=== PATIENT | female | born 1955 | race Caucasian/White ===

== ENCOUNTER 2025-05-08 19:45 | Emergency (ER) | payer MEDICAID ==
[~2025-05-08] VITALS: Ht 162.6 cm; Wt 52.3 kg
[2025-05-08 20:17] LABS: MEAN PLATELET VOLUME 7.2 FL (7.4-10.4); RED CELL DISTRIBUTION WIDTH 13.2 % (11.5-14.5)
--- NOTE | 2025-05-08 20:21 | ELECTROCARDIOGRAPH REPORT ---
[facility] Test Date: 2025-05-08 Test Time: 20:20:01 Pat Name: CE FERRIS Department: EMERGENCY ROOM Room: Gender: F [employer] C[employer] Developer: GRAYSON : 1955 Requested By: SONDRA RYAN Order Number: [id number] Reading MD: Measurements Intervals [place] Rate: 72 P: 81 [place]: 144 QRS: 69 QRSD: 68 T: 85 QT: 406 QTc: 445 Interpretive Statements Sinus rhythm Probable left atrial enlargement Anteroseptal infarct, age indeterminate Please click the below link to view image of tracing.
[2025-05-08 20:37] LABS: CREATININE 0.89 MG/DL (0.40-0.90); ETHANOL 250 MG/DL (<10); TOTAL CARBON DIOXIDE 26.5 MMOL/L (24-32); eCRCL 48 ML/MIN; eGFR 63 ML/MIN
[2025-05-08 20:50] LABS: CREATININE 1.09 MG/DL (0.40-0.90); TOTAL CARBON DIOXIDE 25.6 MMOL/L (24-32); eCRCL 39 ML/MIN; eGFR 49 ML/MIN
--- NOTE | 2025-05-08 21:29 | Physician Documentation ---
History of Present Illness ~ Chief Complaint: 5150 Stated Complaint: 5150 Time Seen by MD: 21:27 Mode of Arrival: Dropped Off HPI Patient is sent from assisted living facility for altered mental status. Endorses alcohol use prior to visit. She keeps on saying that she wants to . Patient also endorses taking unknown amount of pills. Poison control contacted Medication Reconciliation Allergies: Coded Allergies: No Allergy Information Available (Unverified , 05/08/25) Review of Systems ROS All review of systems negative except as per HPI Physical Exam Vital Signs: Temperature: 98.1, Source: Oral, Heart Rate: 71, Respiratory Rate: 12, BP: 113/59, Pulse Oximetry: 95, Weight: 52.270 Oxygen Flow Rate: 0 Physical Exam General: Patient is awake, alert, crying loudly Head: Normocephalic and atraumatic. Eyes: Conjunctival normal. EOMI. PERRL. ENT: Mucous membranes moist. Neck: Supple, trachea is midline. Chest: Clear to auscultation bilaterally without rales, rhonchi, or wheezes. There is no accessory muscle use or retractions. Cardiac: RRR without murmurs, gallops, or rubs. Psych: Uncooperative, combative, appears intoxicated, suicidal Progress Results/Orders Results/Orders Orders - VALERIO BAXTER MD Urinalysis (05/08/25 19:50) Drug Screen, Urine (05/08/25 19:50) Med Rec (05/08/25 19:50) Close Observation Level (05/08/25 19:50) Covid19 Binax Poc Result Entry (05/08/25 19:50) Regular Diet (05/09/25 Breakfast) * Implement/Maintain Seizure P (05/08/25 20:14) Monitor (05/08/25 20:14) Saline Lock (05/08/25 20:14) Oxygen (05/08/25 20:14) Completed Orders - VALERIO BAXTER MD Cbc/Diff (05/08/25 19:50) Ethanol (05/08/25 19:50) TSH (05/08/25 19:50) BMP (05/08/25 19:50) Acetaminophen (05/08/25 20:14) Stat Ekg (05/08/25 ) CMP (05/08/25 20:14) MG (05/08/25 20:14) Calcium (05/08/25 20:14) Haloperidol Lact. (Haldol) (05/08/25 21:30) Lorazepam Inj (Ativan Inj) (05/08/25 21:30) Stat Ekg (05/09/25 00:10) Salicylate (05/08/25 20:26) Medications Received in ER Medications (Trade) Dose Ordered Sig/Tess Route PRN Reason Start Time Stop Time Status Last Admin Dose Admin (Haldol) 10 mg ONCE ONCE IM 05/08/25 21:30 05/08/25 21:31 DC 05/08/25 21:38 10 MG (Ativan inj) 0.5 mg ONCE ONCE IM 05/08/25 21:30 05/08/25 21:31 DC 05/08/25 21:36 0.5 MG Vital Signs 05/08/25 05/08/25 05/08/25 05/08/25 19:48 21:09 21:10 22:30 Temp 98.1 Pulse 71 71 73 Resp 14 12 12 17 B/P (MAP) 106/66 113/59 (77) Pulse Ox 94 95 93 O2 Flow Rate 0 05/09/25 00:05 Pulse 72 Resp 12 B/P (MAP) 96/52 (67) Pulse Ox 94 Laboratory Tests Test 05/08/25 19:57 05/08/25 19:59 05/08/25 20:26 SARS-CoV-2 Antigen (Rapid) Negative White Blood Count 6.5 Red Blood Count 4.20 Hemoglobin 14.0 Hematocrit 39.6 Mean Corpuscular Volume 94.5 Mean Corpuscular Hemoglobin 33.3 H Mean Corpuscular Hemoglobin Concent 35.3 Red Cell Distribution Width 13.2 Platelet Count 332 Mean Platelet Volume 7.2 L Neutrophils (%) (Auto) 57.0 Lymphocytes (%) (Auto) 39.0 Monocytes (%) (Auto) 3.2 Eosinophils (%) (Auto) 0.1 Basophils (%) (Auto) 0.7 Neutrophils # (Auto) 3.7 Lymphocytes # (Auto) 2.5 Monocytes # (Auto) 0.2 Eosinophils # (Auto) 0.0 Basophils # (Auto) 0.0 CBC Comment Sodium Level 142 145 Potassium Level 3.5 3.5 Chloride Level 105 107 Carbon Dioxide Level 26.5 25.6 Anion Gap 11 12 Blood Urea Nitrogen 14 14 Creatinine 0.89 1.09 H Estimated GFR/1.73 m2 63 49 BUN/Creatinine Ratio 15.7 12.8 Glucose Level 88 91 Calcium Level 8.8 8.8 Albumin 3.9 3.9 Thyroid Stimulating Hormone (TSH) 0.84 Chemistry Comments Ethyl Alcohol Level 250 H Magnesium Level 2.2 Total Bilirubin 0.2 Aspartate Amino Transf (AST/SGOT) 24 Alanine Aminotransferase (ALT/SGPT) 22 Alkaline Phosphatase 58 Total Protein 6.8 Globulin 2.9 Albumin/Globulin Ratio 1.3 Salicylates Level 2.4 L Acetaminophen Level < 2.0 L EKG/XRAY/CT/US/VASC/MRI EKG : Additional Comment EKG interpreted by myself shows time of 0014, rate 75, sinus rhythm, normal axis, no ST changes Medical Decision Making Findings Patient presented to the emergency room for evaluation of suicidal ideation as per HPI. Labs reviewed and there was no evidence of major pathologic derangements. Poison control contacted and repeat labs are reassuring. Patient is medically cleared for mental health evaluation. Departure Disposition: 30 STILL A PATIENT Impression: Primary Impression: Suicidal ideation Condition: Guarded Referrals: NO PRIMARY CARE PROVIDER (PCP) Signature Scribe Signature: No scribe Attestation: The note accurately reflects work and decisions made by me.Valerio Baxter MD 05/09/25 02:12 VALERIO BAXTER MD May 08, 2025 21:29
[2025-05-08] MEDS: haloperidol lactate 5mg/ml inj IM ONE (21:38)
--- NOTE | 2025-05-09 00:15 | ELECTROCARDIOGRAPH REPORT ---
[facility] Test Date: 2025-05-09 Test Time: 00:14:09 Pat Name: CE FERRIS Department: [facility]- Patient ID: [facility]-[id number] Room: Gender: F Doctor Osteopathic: RGAYSON : 1955 Requested By: SONDRA RYAN Order Number: [id number] Reading MD: Measurements Intervals [place] Rate: 75 P: 70 [place]: 133 QRS: 11 QRSD: 92 T: 60 QT: 421 QTc: 471 Interpretive Statements Sinus rhythm Low voltage, extremity leads Please click the below link to view image of tracing.
[2025-05-09 06:19] LABS: LEUKOCYTE ESTERASE ,URINE NEGATIVE (Neg); NITRITES, URINE NEGATIVE (Neg); OCCULT BLOOD,URINE TRACE-INTACT (Neg)
[2025-05-09 06:25] LABS: UA COLLECTION TYPE CLN CATCH MIDSTREAM
[2025-05-09 06:27] LABS: MUCUS STRANDS NONE SEEN /LPF (Neg); SQUAMOUS EPITHELIAL CELL,UR MODERATE /LPF (FEW)
[2025-05-09 06:38] LABS: URINE AMPHETAMINE SCREEN POSITIVE (Neg); URINE BARBITUATE SCREEN NEGATIVE (Neg); URINE BENZODIAZEPINES SCREEN NEGATIVE (Neg); URINE COCAINE SCREEN NEGATIVE (Neg); URINE METHADONE SCREEN NEGATIVE (Neg); URINE OPIATE SCREEN POSITIVE (Neg); URINE PHENCYCLIDINE SCREEN NEGATIVE (Neg)
[2025-05-09 12:33] VITALS: RESP 14
[2025-05-09] MEDS: NICOTINE POLACRILEX 2 MG LOZENGE BC PRN (15:43)
[2025-05-09 18:06] VITALS: BP 178/90; PULSE 85; TEMP 97.3; O2SAT 93
== END 2025-05-09 18:30 | disposition home or self-care (01) ==
LOC: ER 19:46
DX: R45.851 Suicidal ideations (principal); F10.90 Alcohol use, unspecified, uncomplicated; Z20.822 Contact with and (suspected) exposure to COVID-19; Y90.8 Blood alcohol level of 240 mg/100 ml or more
CPT/HCPCS: 36415; 80048; 80053; 80305; 80320; 80329; 81001; 83735; 84443; 85025; 87811; 93005; 96372; 99285; J1630; J2060

== ENCOUNTER 2025-08-10 19:03 | Emergency (ER) | payer MEDICARE, MEDICAID ==
[~2025-08-10] VITALS: Ht 162.6 cm; Wt 59.1 kg
[~2025-08-10 19:03] MED LIST: ARIP400S3 IM; ATOR20TA66 PO; BENZ0.5T3 PO; DEXT30CA6 PO; TRAZ150T78 PO; VENL25TA48 PO
[2025-08-10 19:15] VITALS: BP 114/57; PULSE 71; RESP 16; O2SAT 96
--- NOTE | 2025-08-10 19:22 | Physician Documentation ---
History of Present Illness ~ Chief Complaint: ETOH Stated Complaint: L FOOT PAIN Time Seen by MD: 19:11 Mode of Arrival: EMS, Stretcher HPI Patient presents to the emergency room for evaluation of her right foot. She reports that there has been pain in her foot for the past month. She can not recall anything that may have caused her foot pain. She admits to drinking today and has a history of alcoholism and a neighbor that has concerned and called for a welfare check. During the welfare check patient reported her foot pain and therefore was brought in to be evaluated. Tetanus within 5 years?: No (pt unable to answer) Medication Reconciliation Allergies: Coded Allergies: doxycycline (Verified Allergy, Severe, throat swelling, 08/10/25) Scheduled Aripiprazole (Abilify Maintena), 1 EA IM Q28D, (Reported) Atorvastatin Calcium (Atorvastatin Calcium), 1 TAB PO DAILY, (Reported) Benztropine Mesylate (Benztropine Mesylate), 1 TAB PO DAILY, (Reported) Dextroamphetamine/Amphetamine (Dextroamp-Amphet ER 30 mg Cap), 1 CAP PO QAM, (Reported) Trazodone Hcl (Trazodone Hcl), 1 TAB PO HS, (Reported) Venlafaxine Hcl* (Effexor*), 1 TAB PO BID, (Reported) Review of Systems ROS All review of systems negative except as per HPI Physical Exam Vital Signs: Temperature: 98.1, Source: Oral, Heart Rate: 71, Respiratory Rate: 16, BP: 114/57, Pulse Oximetry: 96, Weight: 59.090 Oxygen Flow Rate: 0 Physical Exam General: Patient is awake, alert, oriented x4. Appears intoxicated Head: Normocephalic and atraumatic. Eyes: Conjunctival normal. EOMI. PERRL. ENT: Mucous membranes moist. Neck: Supple, trachea is midline. Chest: Clear to auscultation bilaterally without rales, rhonchi, or wheezes. There is no accessory muscle use or retractions. Cardiac: RRR without murmurs, gallops, or rubs. Abd: Soft, nondistended, nontender, with normoactive bowel sounds. No guarding, rebound, or rigidity. Extremities: No appreciable abnormality of foot aside from tenderness to palpation. No erythema, strong pulses no bruising Progress Results/Orders Results/Orders Orders - VALERIO BAXTER MD Foot, Complete (3vw Min) (08/10/25 19:13) Completed Orders - VALERIO BAXTER MD Foot, Complete (3vw Min) (08/10/25 19:13) Vital Signs 08/10/25 08/10/25 08/10/25 19:06 19:11 19:15 Temp 98.1 Pulse 74 71 Resp 16 16 16 B/P (MAP) 166/102 114/57 (76) Pulse Ox 96 96 O2 Flow Rate 0 0 Medical Decision Making Findings Patient presents to the emergency room with one month history of right foot pain. Differentials include but are not limited to fractures, foreign bodies, cellulitis, gout therefore x-ray performed. X-ray reassuring. That has no objective finding of abnormality on her foot. Possible gout. Conservative management discussed. Departure Disposition: HOME / SELF CARE / HOMELESS Impression: Primary Impression: Foot pain, right Condition: Stable Discharge Instructions: Foot Pain Additional Instructions: The x-ray of your foot was reassuring for no fractures/breaks. Unknown cause for your foot pain. [id number]-grkhfrt analgesics for pain. Follow up with your doctor for resolution of symptoms. Please drink alcohol responsibly Referrals: NO PRIMARY CARE PROVIDER (PCP) Signature Scribe Signature: no scribe Attestation: The note accurately reflects work and decisions made by me.Valerio Baxter MD 08/10/25 20:13 VALERIO BAXTER MD Aug 10, 2025 19:22
--- NOTE | 2025-08-10 20:04 | RADIOLOGY REPORT ---
CLINICAL INDICATION: pain TECHNIQUE: 3 views DI FOOT, COMPLETE (3VW MIN) Comparison: None FINDINGS: Diffuse osteopenia. No evidence of acute fracture or joint malalignment. 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 No appreciable soft tissue swelling. IMPRESSION: 1. No acute osseous finding of the right foot.
[2025-08-10 20:26] VITALS: TEMP 98.1
== END 2025-08-10 20:30 | disposition home or self-care (01) ==
LOC: ER 19:05
DX: M79.671 Pain in right foot (principal); Z88.1 Allergy status to other antibiotic agents; Z79.899 Other long term (current) drug therapy
CPT/HCPCS: 73630; 99284

== ENCOUNTER 2025-10-08 10:27 | Emergency (ER) | payer MEDICARE, OTHER ==
[~2025-10-08] VITALS: Ht 165.1 cm; Wt 56.0 kg
[2025-10-08 10:43] VITALS: TEMP 100.2
--- NOTE | 2025-10-08 12:47 | Physician Documentation ---
History of Present Illness ~ Chief Complaint: Cough Stated Complaint: COUGH Time Seen by MD: 12:28 HPI Female who presents to the emergency department for cough and right foot pain. She reports no trauma or injury to the foot in the [id number]-amce[place] medications have been ineffective in alleviating her pain. Of note, patient was seen here for this same complaint on 08/10/2025 at which point an x-ray was done showing no acute issues in his fracture. The patient also has a recent hospitalization from 06/07/2025 through 06/16/2025. At that time, the patient suffered acute hypoxic respiratory failure due to COPD exacerbation was on a ventilator. She had a normal ejection fraction of 75-80% per echocardiogram. She was ultimately discharged after that stay to an acute rehab facility. Today, she is noted to have a low-grade fever, and reports that she feels overall unwell. Continues to smoke. Medication Reconciliation Allergies: Coded Allergies: doxycycline (Verified Allergy, Severe, throat swelling, 10/08/25) Scheduled Aripiprazole (Abilify Maintena), 1 EA IM Q28D, (Reported) Atorvastatin Calcium (Atorvastatin Calcium), 1 TAB PO DAILY, (Reported) Benztropine Mesylate (Benztropine Mesylate), 1 TAB PO DAILY, (Reported) Dextroamphetamine/Amphetamine (Dextroamp-Amphet ER 30 mg Cap), 1 CAP PO QAM, (Reported) Trazodone Hcl (Trazodone Hcl), 1 TAB PO HS, (Reported) Venlafaxine Hcl* (Effexor*), 1 TAB PO BID, (Reported) Review of Systems ROS As stated above in the HPI, otherwise all systems are reviewed and negative. Physical Exam Vital Signs: Temperature: 100.2, Source: Oral, Heart Rate: 95, Respiratory Rate: 16, BP: 153/77, Pulse Oximetry: 96, Weight: 56.000 Physical Exam General: Alert, no apparent distress. HEENT: PERRL, EOMI, no injection, moist mucous membranes. Neck: Full range of motion. Respiratory: Moderate wheezing, no respiratory distress. Chest: No accessory muscle use. Cardiovascular: Regular rate and rhythm, no murmurs. Gastrointestinal: Soft, nontender, nondistended. Bowels sounds present. Extremities: Normal range of motion, no deformity. Neurologic: Oriented x4. Psychiatric: Normal mood and affect. Skin: Normal color, warm and dry. No edema, no ecchymosis. Progress Results/Orders Results/Orders Orders - RUBY PETERSON LOSS PREVENTION ASSOCIATE Covid19 Binax Poc Result Entry (10/08/25 12:45) Culture Blood (10/08/25 12:45) * Iv Access / Saline Lock * (10/08/25 12:45) Chest,Two Views (10/08/25 13:20) Svn Treatment (10/08/25 14:01) * Miscellaneous Nursing Orders (10/08/25 14:52) Completed Orders - RUBY PETERSON LOSS PREVENTION ASSOCIATE Influenza Type A&B Rapid Test (10/08/25 12:45) CMP (10/08/25 12:45) Cbc/Diff (10/08/25 12:45) Lacticsepsis (10/08/25 12:45) Procalcitonin (10/08/25 12:45) C-Reactive Protein (10/08/25 12:45) Chest,Two Views (10/08/25 13:20) Potassium Cl Sr Tablet (K-Dur Tablet) (10/08/25 13:45) Hs Troponin I W Calculations (10/08/25 13:41) Prednisone Tablet (Prednisone Tablet) (10/08/25 14:05) Ipratropium/Albuterol Nebule (Ipratrop/A (10/08/25 14:05) Ua W/Microscopic, Cult If Ind (10/08/25 14:49) Acetaminophen 325mg Tablet (Tylenol Tabl (10/08/25 15:15) Tramadol Tablet (Ultram Tablet) (10/08/25 15:15) Medications Received in ER Medications (Trade) Dose Ordered Sig/Tess Route PRN Reason Start Time Stop Time Status Last Admin Dose Admin (K-DUR tablet) 40 meq ONCE ONCE PO 10/08/25 13:45 10/08/25 13:46 DC 10/08/25 13:54 40 MEQ (predniSONE tablet) 40 mg ONCE ONCE PO 10/08/25 14:05 10/08/25 14:06 DC 10/08/25 14:38 40 MG (ipratrop/ albuterol 0.5-3(2.5) MG/3ml nebule) 3 ml ONCE ONCE NEB 10/08/25 14:05 10/08/25 14:06 DC 10/08/25 14:25 3 ML Vital Signs 10/08/25 10/08/25 10/08/25 10/08/25 10:43 13:08 13:54 14:25 Temp 100.2 Pulse 95 86 88 79 Resp 16 15 19 16 B/P (MAP) 153/77 140/75 (96) Pulse Ox 96 98 98 100 O2 Delivery Room Air* O2 Flow Rate 0 0 FiO2 21 10/08/25 14:25 Pulse 86 Resp 16 Pulse Ox 99 O2 Delivery Room Air* O2 Flow Rate 0 FiO2 21 Laboratory Tests Test 10/08/25 12:58 10/08/25 13:07 10/08/25 13:48 10/08/25 14:49 Influenza Type A Antigen Negative Influenza Type B Antigen Negative SARS-CoV-2 Antigen (Rapid) Negative White Blood Count 10.0 Red Blood Count 3.93 L Hemoglobin 12.4 Hematocrit 34.8 L Mean Corpuscular Volume 88.5 Mean Corpuscular Hemoglobin 31.5 H Mean Corpuscular Hemoglobin Concent 35.6 Red Cell Distribution Width 13.6 Platelet Count 334 Mean Platelet Volume 7.3 L Neutrophils (%) (Auto) 82.9 H Lymphocytes (%) (Auto) 7.1 L Monocytes (%) (Auto) 9.8 Eosinophils (%) (Auto) 0 Basophils (%) (Auto) 0.2 Neutrophils # (Auto) 8.3 H Lymphocytes # (Auto) 0.7 L Monocytes # (Auto) 1.0 H Eosinophils # (Auto) 0.0 Basophils # (Auto) 0.0 CBC Comment Sodium Level 135 Potassium Level 2.7 *L Chloride Level 101 Carbon Dioxide Level 24.1 Anion Gap 10 Blood Urea Nitrogen 6 L Creatinine 0.68 Estimated GFR/1.73 m2 85 BUN/Creatinine Ratio 8.8 L Glucose Level 128 H Lactic Acid Level 1.3 Calcium Level 8.3 L Total Bilirubin 0.2 Aspartate Amino Transf (AST/SGOT) 20 Alanine Aminotransferase (ALT/SGPT) 14 Alkaline Phosphatase 93 C-Reactive Protein 18.62 H Total Protein 6.6 Albumin 2.7 L Globulin 3.9 Albumin/Globulin Ratio 0.7 L Procalcitonin 0.05 Chemistry Comments Troponin I High Sensitivity 14 Urine Specimen Description Cln catch midstream Urine Color Straw Urine Clarity Clear Urine pH 6.5 Urine Specific [place] <=1.005 Urine Protein Negative Urine Glucose (UA) Negative Urine Ketones Negative Urine Occult Blood Small Urine Nitrite Negative Urine Bilirubin Negative Urine Urobilinogen 0.2 Urine Leukocyte Esterase Negative Urine RBC 0-2 Urine WBC 0-4 Urine Squamous Epithelial Cells Few Urine Bacteria Few Urine Mucus None seen Urine Culture Indicated Not ind Volume Urine Centrifuged 10 ml Urine Comment Microbiology Date/Time Source Procedure Growth Status 10/08/25 13:11 Blood Hand Right Blood Culture - Preliminary NEGATIVE (LESS THAN 24 HOURS) Resulted EKG/XRAY/CT/US/VASC/MRI Chest X-Ray : Additional Comments [facility] [place] [address] [facility] [address] DIAGNOSTIC RADIOLOGY Patient: CE QUINN Medical Record: [id number] [facility] : 1955, Age: 70 Sex: Female Location: ER Patient Status: [facility] ER Service Date/Time: 10/08/251319 Ordering Physician: RUBY PETERSON LOSS PREVENTION ASSOCIATE Exam: CHEST,TWO VIEWS DI CHEST,TWO VIEWS CLINICAL HISTORY: cough, fever COMPARISON: DI CHEST,SINGLE VIEW on DOS: 06/12/25. TECHNIQUE: Frontal and lateral view of the chest was obtained FINDINGS: Lines and Tubes: None Lungs: The lungs are hyperinflated. No focal consolidation. Pleura: No effusion. No pneumothorax. Cardiomediastinal contours: Unremarkable Bones: Age-indeterminate T11 anterior wedge compression deformity. IMPRESSION: 1. No evidence of acute disease. 2. Age-indeterminate T11 anterior wedge compression deformity. 3. COPD. Electronically Signed by:DUSTIN HINDS MD Date & Time: 10/08/251326 Dictated by: DUSTIN HINDS MD Dictation date and time: 12/07/25 1327 Primary Care Provider: NO PRIMARY CARE PROVIDER cc: RUBY PETERSON NP ~ Medical Decision Making Additional information obtaine: old records Findings Noted previously hospitalization for respiratory failure/COPD exacerbation. Differential Dx:Considerations: Include: Allergic rhinitis, Influenza, Otitis media, Peritonsillar abscess, Pharyngitis-Diphtheria, Pharyngitis-Streptoccal, Pharyngitis-Viral, Pneumonia, Pnuemonitis, Sinusitis, URI Differential Diagnosis No PNA on CXR. Normal UA. Hypokalemic at 2.7, treated in ER and will be treated tomorrow as well. Should have K+ level rechecked with PCP in one week. Sending with prednisone po to treat acute COPD exacerbation. Departure Time of Disposition: 13:41 Disposition: HOME / SELF CARE / HOMELESS Impression: Primary Impression: COPD exacerbation Additional Impressions: Hypokalemia Foot pain, right Condition: Stable Discharge Instructions: Chronic Bronchitis, Adult, Musculoskeletal Pain, Garcia pporting Someone With COPD Additional Instructions: X-ray did not show a pneumonia. Negative Covid-19 and Flu testing. Your urinalysis did not show an infection. You are being treated for an exacerbation or worsening of your chronic obstructive pulmonary disease. Please complete the prescribed course of prednisone, next dose due tomorrow. You are also being treated for low potassium levels. You were given one dose in the emergency department and should take a 2nd dose tomorrow. See your primary care provider within a week for recheck of your potassium levels. Continue current medications for chronic right foot pain. Return to the ER for any emergent concerns. Referrals: NO PRIMARY CARE PROVIDER (PCP) Prescriptions Potassium Chloride (Potassium Chloride) 20 Meq Tab.prt.sr 1 TAB PO DAILY for 1 Day, #1 TAB 0 Refills Prov: RUBY PETERSON NP 10/08/25 Albuterol Sulfate (Ventolin Hfa) 90 Mcg Hfa.aer.ad 2 PUFFS INH Q4HPRN PRN for wheezing for 30 Days, #18 GM 0 Refills Prov: RUBY PETERSON NP 10/08/25 Prednisone (Prednisone) 50 Mg Tablet 1 TAB PO DAILY for 5 Days, #5 TAB 0 Refills Prov: RUBY PETERSON NP 10/08/25 Education Educated: Patient Educated regarding: diagnosis, treatment, prognosis, need for follow up Signature Scribe Signature: x Attestation: The note accurately reflects work and decisions made by me.Ruby Wood NP 10/08/25 15:23 RUBY PETERSON NP Oct 08, 2025 12:47
[2025-10-08 13:17] LABS: MEAN PLATELET VOLUME 7.3 FL (7.4-10.4); RED CELL DISTRIBUTION WIDTH 13.6 % (11.5-14.5)
--- NOTE | 2025-10-08 13:30 | RADIOLOGY REPORT ---
DI CHEST,TWO VIEWS CLINICAL HISTORY: cough, fever COMPARISON: DI CHEST,SINGLE VIEW on DOS: 06/12/25. TECHNIQUE: Frontal and lateral view of the chest was obtained FINDINGS: Lines and Tubes: None Lungs: The lungs are hyperinflated. No focal consolidation. Pleura: No effusion. No pneumothorax. Cardiomediastinal contours: Unremarkable Bones: Age-indeterminate T11 anterior wedge compression deformity. IMPRESSION: 1. No evidence of acute disease. 2. Age-indeterminate T11 anterior wedge compression deformity. 3. COPD.
[2025-10-08 13:31] LABS: CREATININE 0.68 MG/DL (0.40-0.90); TOTAL CARBON DIOXIDE 24.1 MMOL/L (24-32); eCRCL 67 ML/MIN; eGFR 85 ML/MIN
[2025-10-08 13:36] LABS: INFLUENZA TYPE A ANTIGEN RAPID NEGATIVE (Negative); INFLUENZA TYPE B ANTIGEN RAPID NEGATIVE (Negative)
[2025-10-08] MEDS: potassium Cl 20 mEq SR tablet PO ONE (13:54)
[2025-10-08 14:25] VITALS: PULSE 79; PULSE 86; RESP 16; O2SAT 100; O2SAT 99
[2025-10-08] MEDS: ipratropium/albuterol 3ml nebule NEB ONE (14:25)
[2025-10-08 15:10] LABS: LEUKOCYTE ESTERASE ,URINE NEGATIVE (Neg); NITRITES, URINE NEGATIVE (Neg); OCCULT BLOOD,URINE SMALL (Neg)
[2025-10-08 15:12] LABS: UA COLLECTION TYPE CLN CATCH MIDSTREAM
[2025-10-08 15:17] LABS: MUCUS STRANDS NONE SEEN /LPF (Neg); SQUAMOUS EPITHELIAL CELL,UR FEW /LPF (FEW)
[2025-10-08] MEDS ORDERED: ALBU18HF2 INH (15:21)
[2025-10-08] MEDS ORDERED: PRED50TA PO (15:21)
[2025-10-08] MEDS ORDERED: POTA-208 PO (15:21)
[2025-10-08 17:47] VITALS: BP 152/64; PULSE 93; O2SAT 94
[2025-10-08 17:52] VITALS: RESP 20
== END 2025-10-08 17:55 | disposition home or self-care (01) ==
LOC: ER 10:27
DX: J44.1 Chronic obstructive pulmonary disease with (acute) exacerbation (principal); E87.6 Hypokalemia; M79.671 Pain in right foot; F17.200 Nicotine dependence, unspecified, uncomplicated; Z20.822 Contact with and (suspected) exposure to COVID-19; Z88.1 Allergy status to other antibiotic agents
CPT/HCPCS: 36415; 71046; 80053; 81001; 83605; 84145; 84484; 85025; 86140; 87040; 87804; 87811; 94640; 99285; J7512; 94760